=== PATIENT | male | born 1935 | race Two or more races ===

== ENCOUNTER 2017-11-12 04:51 | Emergency (ER) | payer MEDICARE ==
[~2017-11-12] VITALS: Ht 167.6 cm; Wt 84.4 kg
--- NOTE | 2017-11-12 04:58 | NUR ---
PT AMBULATORY TO ER BED 3. PT BIB SELF C/O "PALPITATIONS AND HIGH B/P" X 5 HOURS. VSS/RESP EVEN UNLABORED/NAD NOTED/AFEBRILE/DENIES N-V-D/SKIN WARM AND DRY/AOX4. PT DENIES CP/SOB. AWAITING MD CAMPOS.
--- NOTE | 2017-11-12 05:28 | NUR ---
EMT AT BEDSIDE FOR EKG.
--- NOTE | 2017-11-12 05:30 | NUR ---
18G IV TO R AC X 1 ATTEMPT USING ASEPTIC TECH, BLOOD HANDED OVER TO LAB AT THE BEDSIDE. IV FLUSHES EASILY WITH NS, NO S/S OF INFILTRATION.
[2017-11-12 05:47] LABS: BASOPHILS % (AUTO) 0.4 % (0.0-2.0); EOSINOPHILS # (AUTO) 0.2 /CMM (0.0-0.7); EOSINOPHILS % (AUTO) 2.4 % (0.0-6.0); HEMATOCRIT 40 % (39-51); HEMOGLOBIN 13.5 g/dL (13.5-17.5); LYMPHOCYTES # (AUTO) 1.9 /CMM (0.8-4.8); LYMPHOCYTES % (AUTO) 24.1 % (20.0-44.0); MEAN CORPUSCULAR HEMOGLOBIN 33 PG (26.0-33.0); MEAN CORPUSCULAR HGB CONC 34 g/dl (31.0-36.0); MEAN CORPUSCULAR VOLUME 97 fL (80-96); MONOCYTES # (AUTO) 0.9 /CMM (0.1-1.30); MONOCYTES % (AUTO) 10.9 % (2.0-12.0); NEUTROPHILS % (AUTO) 62.2 % (43.0-81.0); PLATELET COUNT (AUTO) 234 /CMM (150-450); RDW COEFFICIENT OF VARIATION 14.4 (11.5-15.0); RED BLOOD CELL COUNT(AUTO) 4.07 MIL/uL (4.5-6.0)
[2017-11-12 05:55] LABS: CALCIUM, SERUM 8.9 mg/dL (8.5-10.1); CARBON DIOXIDE 26 mmol/L (21-32); CHLORIDE 103 mmol/L (98-107); CREATININE 1.1 mg/dL (0.6-1.3); GLUCOSE 101 mg/dL (74-106); POTASSIUM 3.7 mmol/L (3.5-5.1); SODIUM SERUM 140 mmol/L (136-145); UREA NITROGEN, BLOOD 24 mg/dL (7-18)
--- NOTE | 2017-11-12 05:57 | NUR ---
XRAY AT BEDSIDE.
[2017-11-12 06:15] LABS: TROPONIN I < 0.017 ng/mL (0.00-0.056)
[2017-11-12 06:27] LABS: INR 1.02 (0.87-1.13)
[2017-11-12] MEDS ORDERED: IV NS 0.9% 500 ML IV ONE (06:30)
--- NOTE | 2017-11-12 07:19 | NUR ---
ENDORSED TO WILBERT KENDALL FOR DIONE.
--- NOTE | 2017-11-12 07:23 | NUR ---
IV removed. Catheter intact and site benign. Pressure and 4x4 applied to site. No bleeding noted. Patient discharged to home in stable condition. Written and verbal after care instructions given. Patient verbalizes understanding of instruction. Patient ambulatory with a steady gait.
[2017-11-12 07:24] VITALS: BP 162/91
== END 2017-11-12 07:25 | disposition home or self-care (01) ==
LOC: ER 05:10
DX: I48.91 Unspecified atrial fibrillation (principal); I10 Essential (primary) hypertension; J18.9 Pneumonia, unspecified organism; N40.0 Benign prostatic hyperplasia without lower urinary tract symptoms; Y95 Nosocomial condition; Z90.89 Acquired absence of other organs
CPT/HCPCS: 36415; 71045; 80048; 83735; 84484; 85025; 85730; 93005; 99285; A4606; J7030; J7040; Z7610

== ENCOUNTER 2017-11-16 08:34 | Inpatient (IN) | payer MEDICARE ==
[~2017-11-16] VITALS: Ht 167.6 cm; Wt 83.9 kg
--- NOTE | 2017-11-16 08:34 | NUR ---
C/O PALPITATION AND RAPID HR, DENIES CHEST PAIN. NAD NOTED. PT AAO X3. RR EVEN AND UNLABORED. PT PLACED IN GOWN AND MONITOR. DR JOHN AT BEDSIDE FOR EVAL.
[2017-11-16] MEDS ORDERED: METOPROLOL TARTRATE INJ 5 MG/5 ML AMPUL ONE (08:55)
[2017-11-16 09:00] LABS: BASOPHILS % (AUTO) 0.2 % (0.0-2.0); EOSINOPHILS # (AUTO) 0.1 /CMM (0.0-0.7); EOSINOPHILS % (AUTO) 1.9 % (0.0-6.0); HEMATOCRIT 39 % (39-51); HEMOGLOBIN 13.3 g/dL (13.5-17.5); LYMPHOCYTES # (AUTO) 1.4 /CMM (0.8-4.8); LYMPHOCYTES % (AUTO) 22.3 % (20.0-44.0); MEAN CORPUSCULAR HEMOGLOBIN 33 PG (26.0-33.0); MEAN CORPUSCULAR HGB CONC 34 g/dl (31.0-36.0); MEAN CORPUSCULAR VOLUME 97 fL (80-96); MONOCYTES # (AUTO) 0.7 /CMM (0.1-1.30); MONOCYTES % (AUTO) 12.1 % (2.0-12.0); NEUTROPHILS # (AUTO) 3.9 /CMM (1.8-8.9); NEUTROPHILS % (AUTO) 63.5 % (43.0-81.0); PLATELET COUNT (AUTO) 195 /CMM (150-450); RDW COEFFICIENT OF VARIATION 14.5 (11.5-15.0); RED BLOOD CELL COUNT(AUTO) 4.07 MIL/uL (4.5-6.0); WHITE BLOOD COUNT (AUTO) 6.1 K/uL (4.3-11.0)
[2017-11-16] MEDS ORDERED: METOPROLOL TARTRATE INJ 5 MG/5 ML AMPUL IV ONE (09:00)
[2017-11-16] MEDS ORDERED: MELA3TAB PO (09:14)
[2017-11-16] MEDS ORDERED: PRAV40TA3 PO (09:14)
[2017-11-16] MEDS ORDERED: PRAV20TA4 PO (09:14)
[2017-11-16] MEDS ORDERED: BRIM5DRO3 EACHEYE (09:14)
[2017-11-16] MEDS ORDERED: PROM6.25 PO (09:14)
[2017-11-16] MEDS ORDERED: RANI150T12 PO (09:14)
[2017-11-16] MEDS ORDERED: ALFU10TA PO (09:14)
[2017-11-16] MEDS ORDERED: CLON0.1T PO (09:14)
[2017-11-16] MEDS ORDERED: GINK120T4 PO (09:14)
[2017-11-16] MEDS ORDERED: AMIO200T2 PO (09:14)
[2017-11-16] MEDS ORDERED: IPRA12.9 IH (09:14)
[2017-11-16] MEDS ORDERED: CHOL100044 PO (09:14)
[2017-11-16] MEDS ORDERED: MAGN400T26 PO (09:14)
[2017-11-16] MEDS ORDERED: OMEG-167 PO (09:14)
[2017-11-16] MEDS ORDERED: MULT-447 PO (09:14)
[2017-11-16] MEDS ORDERED: DEXL60CA3 PO (09:14)
[2017-11-16] MEDS ORDERED: DIGO125T PO (09:14)
[2017-11-16] MEDS ORDERED: LEVO100T9 PO (09:14)
[2017-11-16] MEDS ORDERED: GLUC1TAB20 PO (09:14)
[2017-11-16 09:15] LABS: INR 1.15 (0.87-1.13)
[2017-11-16 09:17] LABS: ALANINE AMINOTRANSFERASE 39 U/L (12-78); ALBUMIN 3.4 g/dL (3.4-5.0); ALKALINE PHOSPHATASE 79 U/L (46-116); ASPARTATE AMINOTRANSFERASE 30 U/L (15-37); BILIRUBIN,DIRECT 0.1 mg/dL (0.0-0.2); BILIRUBIN,TOTAL 0.3 mg/dL (0.2-1.0); CALCIUM, SERUM 8.7 mg/dL (8.5-10.1); CARBON DIOXIDE 23 mmol/L (21-32); CHLORIDE 103 mmol/L (98-107); CREATININE 1.2 mg/dL (0.6-1.3); GLUCOSE 103 mg/dL (74-106); POTASSIUM 3.8 mmol/L (3.5-5.1); SODIUM SERUM 139 mmol/L (136-145); TOTAL PROTEIN, SERUM 7.7 g/dL (6.4-8.2); UREA NITROGEN, BLOOD 25 mg/dL (7-18)
[2017-11-16 09:19] LABS: TROPONIN I < 0.017 ng/mL (0.00-0.056)
[2017-11-16] MEDS ORDERED: IV NS 0.9% 1,000 ML IV PRN (10:21)
[2017-11-16] MEDS ORDERED: MAGNESIUM HYDROXIDE 30 ML UDC PO PRN (10:30)
[2017-11-16] MEDS ORDERED: CLONIDINE HCL 0.1 MG TABLET PO PRN (10:30)
[2017-11-16] MEDS ORDERED: HYDROCODONE/APAP 5/325MG 1 EACH TABLET PO PRN (10:30)
[2017-11-16] MEDS ORDERED: Z GUARD REMEDY 2 OZ OINT TP PRN (10:30)
[2017-11-16] MEDS ORDERED: ONDANSETRON HCL/PF 4 MG/2 ML VIAL IVP PRN (10:30)
[2017-11-16] MEDS ORDERED: MAG HYDROX/AL HYDROX/SIMETH 30 ML UDC PO PRN (10:30)
[2017-11-16] MEDS ORDERED: ACETAMINOPHEN 325 MG TABLET PO PRN (10:30)
[2017-11-16] MEDS ORDERED: HYDROMORPHONE INJ 0.5 MG/0.5 ML SYRINGE IV PRN (12:00)
[2017-11-16] MEDS ORDERED: IPRATROPIUM NEB FS 0.5 MG/2.5 ML AMPUL.NEB NEB PRN (12:00)
[2017-11-16] MEDS ORDERED: FAMOTIDINE 40 MG TABLET PO SCH (12:00)
[2017-11-16] MEDS: ATORVASTATIN 10 MG TABLET PO SCH (12:01)
[2017-11-16] MEDS: AMIODARONE HCL 200 MG TABLET PO SCH (12:01)
[2017-11-16] MEDS: ENOXAPARIN SODIUM 40 MG/0.4 ML DISP.SYRIN SQ SCH (12:05)
--- NOTE | 2017-11-16 12:14 | NUR ---
DYE TANK TENDER ADMITTING NOTES PATIENT ADMITTED TO UNIT AT 1135H VIA GURNEY ACCOMPANIED BY NURSE YESENIA. A/O X4, SAME VERBALLY RESPONSIVE WITH NO C/O PAIN OR DISCOMFORTS DURING ADMISSION. PT ORIENTED TO UNIT AND ROOM. PT WITH DIAGNOSIS OF A-FIB WITH RVR AND PLACED ON TELE-MONITORING WITH CURRENT READING OF SR AND HR OF 78, NO VERBALIZATION OF PALPITATION OR RAPID HR VOICED. V/S CHECKED AND RECORDED. BODY ASSESSMENT DONE WITH INTACT SKIN, NO RASHES OR BRUISES NOTED. PT HAS INTACT AND PATENT IV ACCESS ON LEFT AC g#20, IVF OF NS AT 75ML/HR STARTED, NO SIGNS OF INFILTRATION NOTED. SAFETY MEASURES INITIATED. BED PLACED ON LOW/LOCKED POSITION WITH SIDE-RAILS UP X 2. CALL LIGHT AND BEDSIDE TABLE PLACED WITHIN EASY REACH. WILL CONTINUE TO MONITOR PT ACCORDINGLY. ,
[2017-11-16] MEDS ORDERED: PROMETHAZINE HCL SYRUP 6.25 MG/5 ML UDC PO PRN (13:00)
[2017-11-16] MEDS: FAMOTIDINE (20 MG) 20 MG TABLET PO SCH (14:26)
[2017-11-16 16:00] VITALS: BP 123/72
[2017-11-16] MEDS ORDERED: Medication Not On Formulary EA (Omega-3 Fatty Acids/Fish Oil (Fish Oil 1,000 Mg Softgel) PO SCH (17:00)
--- NOTE | 2017-11-16 17:13 | NUR ---
RN NOTES PATIENT ON DAILY WARFARIN 4MG TAB, PER PT, HE USUALLY TAKE THE MEDICATION AT 1700H DAILY BUT TOOK THE 4MG DOSE ALREADY THIS MORNING BEFORE COMING TO HOSPITAL, SO NEXT DOSE WILL BE TOMORROW AFTERNOON. ALL HOME MEDS BROUGHT [place] PT SENT TO PHARMACY FOR SAFEKEEPING.
[2017-11-16] MEDS: MAGNESIUM OXIDE 400 MG TABLET PO SCH (17:19)
[2017-11-16] MEDS: BRIMONIDINE TARTRATE OPHT SOLN 5 ML BOTTLE EACHEYE SCH (17:19)
[2017-11-16] MEDS ORDERED: CHOLECALCIFEROL 1,000 UNIT TABLET (VIT D3) PO SCH (18:00)
[2017-11-16] MEDS ORDERED: [UNRECOGNIZED DRUG - OTHER] PO SCH (18:00)
[2017-11-16] MEDS ORDERED: GINKGO BILOBA 120 MG PO SCH (18:00)
[2017-11-16] MEDS ORDERED: Medication Not On Formulary EA (Melatonin 3 MG) PO SCH (18:00)
--- NOTE | 2017-11-16 18:59 | NUR ---
BATCH RECORDS CLERK CLOSING NOTES PT AWAKE AND RESTING IN BED. A/O X4, SAME ABLE TO MAKE NEEDS KNOWN. ALL NEEDS AND CARE ATTENDED WELL. ON ROOM AIR, BREATHING EVEN AND UNLABORED, NO ACUTE RESPIRATORY DISTRESS NOTED. ON TELE-MONITORING WITH CURRENT READINGS OF SR AND HR OF 75, NO C/O PALPITATION DURING SHIFT. IV ACCESS ON LEFT AC INTACT AND PATENT WITH IVF OF NS @ 75ML/HR INFUSING WELL, NO SIGNS OF INFILTRATION NOTED. HOB KEPT ELEVATED. BED IN LOW AND LOCKED POSITION. CALL LIGHT AND BEDSIDE TABLE WITHIN EASY REACH OF PT. WILL ENDORSED TO CHUCKING MACHINE SET UP OPERATOR NURSE FOR DIONE.
--- NOTE | 2017-11-16 19:30 | NUR ---
CONCERT OR LECTURE HALL MANAGER OPENING NOTES: PATIENT IN BED, AOX4, ON ROOM AIR, BREATHING EVEN AND UNLABORED. APPEARS CALM AND IN NO DISTRESS. DENIES PAIN AT THIS TIME. BREATH SOUNDS CLEAR TO AUSCULTATION. PIV OVER LAC G 20 INTACT AND PATENT TO FLUSH, RECONNECTED TO IV OF NS RUNNING AT 75 ML/HR. PROVIDED FOR COMFORT AND SAFETY. BED IN LOWEST AND LOCKED POSITION, SIDERAILS UP X 3, CALL LIGHT WITHIN REACH. WILL CONT TO MONITOR.
[2017-11-16 20:00] VITALS: BP 92/50
--- NOTE | 2017-11-16 20:29 | NUR ---
RN NOTES: REPORT GIVEN TO WILBERT DAUGHERTY FOR DIONE.
[2017-11-17] VITALS: BP 125/72
[2017-11-17 04:00] VITALS: BP 144/72
[2017-11-17 07:01] VITALS: BP 132/72
--- NOTE | 2017-11-17 07:10 | NUR ---
REPORT RECEIVED AT THE BEDSIDE. PATIENT IS RESTING COMFORTABLY IN BED. NO SOB OR DISTRESS NOTED AT THIS TIME. PATIENT DENIES PAIN. HEART RATE SR IN THE 80S. BED IN A LOW POSITION, CALL LIGHT WITHIN PATIENT REACH. WILL CONTINUE TO MONITOR.
--- NOTE | 2017-11-17 07:21 | NUR ---
ms/rn notes Patient alert et oriented, No significant changes the entire shift. Vital signs, afebrile, Denies pain at present. Admisnitered all meds as ordered. Sinus Rhthm on surveillance monitor, hr-70. No acute distress noted. All meeds attended. will endorse accordingly.
[2017-11-17] MEDS ORDERED: LEVOTHYROXINE SODIUM 100 MCG TABLET PO SCH (07:30)
[2017-11-17 07:51] LABS: BASOPHILS % (AUTO) 0.2 % (0.0-2.0); EOSINOPHILS % (AUTO) 0.6 % (0.0-6.0); HEMATOCRIT 35 % (39-51); LYMPHOCYTES # (AUTO) 1.2 /CMM (0.8-4.8); LYMPHOCYTES % (AUTO) 21.8 % (20.0-44.0); MEAN CORPUSCULAR HEMOGLOBIN 34 PG (26.0-33.0); MEAN CORPUSCULAR HGB CONC 34 g/dl (31.0-36.0); MEAN CORPUSCULAR VOLUME 98 fL (80-96); MONOCYTES # (AUTO) 0.6 /CMM (0.1-1.30); MONOCYTES % (AUTO) 10.9 % (2.0-12.0); NEUTROPHILS # (AUTO) 3.6 /CMM (1.8-8.9); NEUTROPHILS % (AUTO) 66.5 % (43.0-81.0); PLATELET COUNT (AUTO) 174 /CMM (150-450); RDW COEFFICIENT OF VARIATION 14.2 (11.5-15.0); RED BLOOD CELL COUNT(AUTO) 3.59 MIL/uL (4.5-6.0); WHITE BLOOD COUNT (AUTO) 5.5 K/uL (4.3-11.0)
[2017-11-17 08:00] VITALS: BP 132/72
[2017-11-17 08:00] LABS: CALCIUM, SERUM 8.1 mg/dL (8.5-10.1); CARBON DIOXIDE 24 mmol/L (21-32); CHLORIDE 105 mmol/L (98-107); CREATININE 1.3 mg/dL (0.6-1.3); GLUCOSE 90 mg/dL (74-106); MAGNESIUM 2.1 mg/dL (1.8-2.4); POTASSIUM 3.9 mmol/L (3.5-5.1); SODIUM SERUM 140 mmol/L (136-145); UREA NITROGEN, BLOOD 19 mg/dL (7-18)
[2017-11-17 08:06] LABS: CHOLESTEROL 165 mg/dL (<200); HDL CHOLESTEROL 50 mg/dL (40-60); LDL 101 mg/dL (0-99); TRIGLYCERIDES 93 mg/dL (30-150)
[2017-11-17] MEDS: MAGNESIUM OXIDE 400 MG TABLET PO SCH (08:20)
[2017-11-17] MEDS: BRIMONIDINE TARTRATE OPHT SOLN 5 ML BOTTLE EACHEYE SCH (08:20)
[2017-11-17] MEDS: FAMOTIDINE (20 MG) 20 MG TABLET PO SCH (08:21)
[2017-11-17] MEDS: ATORVASTATIN 10 MG TABLET PO SCH (08:21)
[2017-11-17 08:22] VITALS: BP 132/72
[2017-11-17] MEDS: AMIODARONE HCL 200 MG TABLET PO SCH (08:22)
[2017-11-17] MEDS: ENOXAPARIN SODIUM 40 MG/0.4 ML DISP.SYRIN SQ SCH (08:23)
[2017-11-17] MEDS ORDERED: AMIODARONE HCL 200 MG TABLET PO SCH ×2 (09:00)
[2017-11-17] MEDS ORDERED: WARF2TAB57 PO (11:17)
[2017-11-17] MEDS ORDERED: AMIO200T7 PO (11:17)
--- NOTE | 2017-11-17 12:05 | NUR ---
DISCHARGE INSTRUCTIONS GIVEN TO THE PATIENT AND ABLE TO UNDERSTAND. ALL PAPER WORK SIGNED AND BELONGINGS ACCOUNTED FOR. PATIENT STATES FULL UNDERSTANDING OF DISCHARGE AND FOLLOW UP INSTRUCTIONS. IV LINE REMOVED AND PRESSURE APPLIED, NO BLEEDING NOTED AT THE SITE. PICTURES OF SKIN NOT NEEDED PATIENT THEY WERE TAKEN LESS THAN 24 HOURS AGO AND THERE ARE NO NEW CHANGES. HEART MONITOR REMOVED AND RETURNED TO THE TELE DESK. FLU AND PNEUMONIA NOT GIVEN PATIENT RECEIVED THEM BOTH JUN 2017. PATIENT LEFT IN STABLE CONDITION, AMBULATORY, TO HOME. ESCORTED TO CAR AND PICKUP PERSON BY WILBERT EDOUARD. NO SOB OR DISTRESS NOTED.
[2017-11-17] MEDS ORDERED: DIGOXIN 0.125 MG TABLET PO PRN (12:06)
[2017-11-17] MEDS ORDERED: WARFARIN SODIUM 2 MG TABLET PO SCH (17:00)
[2017-11-17] MEDS ORDERED: MULTIVIT, IRON, MIN NO. 8, FA 1 TAB PO SCH (18:00)
[2017-11-18] MEDS ORDERED: PRAVASTATIN SODIUM 20 MG TABLET PO SCH (09:00)
== END 2017-11-17 12:12 | disposition home or self-care (01) | DRG 308 ==
LOC: ER 08:35 → TELE 10:45 → MED 11-17 08:44
PROVIDERS: ADMIT Nurse Practitioner Acute Care; ATTEND Nurse Practitioner Acute Care
DX: I48.91 Unspecified atrial fibrillation (principal); N17.0 Acute kidney failure with tubular necrosis; E03.9 Hypothyroidism, unspecified; E78.5 Hyperlipidemia, unspecified; N40.0 Benign prostatic hyperplasia without lower urinary tract symptoms; I10 Essential (primary) hypertension; D64.9 Anemia, unspecified; F10.10 Alcohol abuse, uncomplicated; Y90.9 Presence of alcohol in blood, level not specified; Z79.01 Long term (current) use of anticoagulants; Z79.899 Other long term (current) drug therapy
CPT/HCPCS: 36415; 71045-TC; 80048-TC; 80061-TC; 80076-TC; 82306; 82728-TC; 83540-TC; 83735-TC; 84100-TC; 84439-TC; 84443-TC; 84484-TC; 85025-TC; 85730-TC; 87081-TC; 93307-TC; A4606; J1650; J3490; J7030; Q0169; Z7610

== ENCOUNTER 2018-03-08 11:58 | Inpatient (IN) | payer MEDICARE ==
[~2018-03-08] VITALS: Ht 154.9 cm; Wt 84.4 kg
[~2018-03-08 11:58] MED LIST: ALFU10TA PO; AMIO200T7 PO; BRIM5DRO3 EACHEYE; CHOL100044 PO; CLON0.1T PO; DEXL60CA3 PO; DIGO125T PO; GINK120T4 PO; GLUC1TAB20 PO; IPRA12.9 IH; LEVO100T9 PO; MAGN400T26 PO; MELA3TAB PO; MULT-447 PO; OMEG-167 PO; PRAV20TA4 PO; PRAV40TA3 PO; PROM6.256 PO; RANI150T43 PO; WARF2TAB57 PO
--- NOTE | 2018-03-08 12:15 | NUR ---
A/O X 4. PT STABLE CONDITION. VSS. NEG ACUTE DISTRESS. NEG SOB. C/C PALPITATIONS SINCE MORNING. SAFETY MEASURES IN PLACE.
[2018-03-08] MEDS ORDERED: IV NS 0.9% 500 ML BAG IV ONE (12:30)
[2018-03-08 12:40] LABS: BASOPHILS # (AUTO) 0.1 /CMM (0.0-0.2); BASOPHILS % (AUTO) 1.1 % (0.0-2.0); EOSINOPHILS % (AUTO) 2.6 % (0.0-6.0); HEMATOCRIT 41 % (39-51); HEMOGLOBIN 13.9 g/dL (13.5-17.5); LYMPHOCYTES # (AUTO) 1.4 /CMM (0.8-4.8); LYMPHOCYTES % (AUTO) 23.6 % (20.0-44.0); MEAN CORPUSCULAR HGB CONC 34 g/dl (31.0-36.0); MEAN CORPUSCULAR VOLUME 96 fL (80-96); MONOCYTES # (AUTO) 0.5 /CMM (0.1-1.30); MONOCYTES % (AUTO) 7.9 % (2.0-12.0); NEUTROPHILS # (AUTO) 3.6 /CMM (1.8-8.9); NEUTROPHILS % (AUTO) 64.8 % (43.0-81.0); PLATELET COUNT (AUTO) 218 /CMM (150-450); RDW COEFFICIENT OF VARIATION 13.2 (11.5-15.0); RED BLOOD CELL COUNT(AUTO) 4.25 MIL/uL (4.5-6.0); WHITE BLOOD COUNT (AUTO) 5.8 K/uL (4.3-11.0)
--- NOTE | 2018-03-08 12:50 | NUR ---
XRAY AT BEDSIDE
[2018-03-08 12:52] LABS: CALCIUM, SERUM 9.3 mg/dL (8.5-10.1); CARBON DIOXIDE 24 mmol/L (21-32); CHLORIDE 104 mmol/L (98-107); CREATININE 1.4 mg/dL (0.6-1.3); GLUCOSE 123 mg/dL (74-106); POTASSIUM 3.7 mmol/L (3.5-5.1); SODIUM SERUM 138 mmol/L (136-145); UREA NITROGEN, BLOOD 21 mg/dL (7-18)
[2018-03-08 12:54] LABS: INR 2.23 (0.85-1.15)
[2018-03-08 12:57] LABS: ALANINE AMINOTRANSFERASE 36 U/L (12-78); ALBUMIN 3.5 g/dL (3.4-5.0); ALKALINE PHOSPHATASE 96 U/L (46-116); ASPARTATE AMINOTRANSFERASE 24 U/L (15-37); BILIRUBIN,DIRECT 0.1 mg/dL (0.0-0.2); BILIRUBIN,TOTAL 0.3 mg/dL (0.2-1.0); TOTAL PROTEIN, SERUM 7.6 g/dL (6.4-8.2)
[2018-03-08 13:00] LABS: TROPONIN I < 0.017 ng/mL (0.00-0.056)
--- NOTE | 2018-03-08 15:38 | NUR ---
PAGED DR. MCKINNEY FOR ADMISSION
--- NOTE | 2018-03-08 15:48 | NUR ---
REPAGED DR MCKINNEY.
[2018-03-08] MEDS ORDERED: DILTIAZEM HCL 25 MG IV ONE (15:58)
[2018-03-08] MEDS ORDERED: DILTIAZEM HCL 50 MG IV IV ONE (16:00)
[2018-03-08] MEDS ORDERED: WARF4TAB72 PO (16:02)
--- NOTE | 2018-03-08 16:20 | NUR ---
REPORT GIVEN TO BRYAN ATKINS FOR DIONE
[2018-03-08 16:35] VITALS: BP 112/76
--- NOTE | 2018-03-08 16:35 | NUR ---
RN NOTES RECEIVED PT FROM ER IN ROOM 105, TELE STATUS , PT IS A/OX4, ON RA , RESPIRATION EVEN AND UNLABORED, BEBA CHEST PAIN , ON TELE HR IN 80 , A.FIB, R FA IV SITE G 20 CDI, SR UP x2, CALL LIGHT WITHIN EASY REACH, BED LOCKED AND IN LOWEST POSITION , WILL CONTINUE TO MONITOR PT CLOSELY.
[2018-03-08 17:00] VITALS: BP 112/76
[2018-03-08] MEDS: MAGNESIUM OXIDE 400 MG TABLET PO SCH (17:00)
[2018-03-08] MEDS ORDERED: DIGOXIN 0.125 MG TABLET PO PRN (17:00)
[2018-03-08] MEDS ORDERED: CLONIDINE HCL 0.1 MG TABLET PO PRN (17:00)
[2018-03-08] MEDS ORDERED: Medication Not On Formulary EA (Omega-3 Fatty Acids/Fish Oil (Fish Oil 1,000 Mg Softgel) PO SCH (17:00)
[2018-03-08] MEDS ORDERED: PROMETHAZINE HCL SYRUP 6.25 MG/5 ML UDC PO PRN (17:00)
[2018-03-08] MEDS ORDERED: ACETAMINOPHEN 325 MG TABLET PO PRN (17:30)
[2018-03-08] MEDS ORDERED: ZOLPIDEM TARTRATE 5 MG TABLET PO PRN (17:30)
[2018-03-08] MEDS ORDERED: MAG HYDROX/AL HYDROX/SIMETH 30 ML UDC PO PRN (17:30)
[2018-03-08] MEDS ORDERED: Z GUARD REMEDY 2 OZ OINT TP PRN (17:30)
[2018-03-08] MEDS ORDERED: MAGNESIUM HYDROXIDE 30 ML UDC PO PRN (17:30)
[2018-03-08] MEDS ORDERED: ONDANSETRON HCL/PF 4 MG/2 ML VIAL IVP PRN (17:30)
[2018-03-08] MEDS ORDERED: HYDROCODONE/APAP 5/325MG 1 EACH TABLET PO PRN (17:30)
[2018-03-08] MEDS: CHOLECALCIFEROL 1,000 UNIT TABLET (VIT D3) PO SCH (17:33)
[2018-03-08] MEDS: MULTIVITAMINS,THERAGRAN 1 UDTAB TABLET PO SCH (17:33)
[2018-03-08] MEDS: WARFARIN SODIUM 2 MG TABLET PO SCH (17:52)
[2018-03-08] MEDS ORDERED: [UNRECOGNIZED DRUG - OTHER] PO SCH (18:00)
[2018-03-08] MEDS ORDERED: GINKGO BILOBA 120 MG PO SCH (18:00)
[2018-03-08] MEDS ORDERED: Medication Not On Formulary EA (Melatonin 3 MG) PO SCH (18:00)
--- NOTE | 2018-03-08 18:41 | NUR ---
RN NOTES VSS STABLE , PT BEBA ANY DISTRESS , WILL ENDOSE TO METALSMITH HELPER NURSE FOR DIONE.
--- NOTE | 2018-03-08 19:30 | NUR ---
RN/TELE NOTES: RECEIVED PT. IN BED W/ HOB ELEVATED. A/O X 4. ON TELE MONITOR W/ SR @ 78. DENIES ANY C/O CHEST PAIN OR SOB AT PRESENT. CONTINENT OF B/B. USES URINAL. BEDS LOCKED AND IN LOW POSITION. CALL LIGHT W/ REACH. WILL CONTINUE TO MONITOR.
[2018-03-08 20:00] VITALS: BP 98/60
[2018-03-08] MEDS: BRIMONIDINE TARTRATE OPHT SOLN 5 ML BOTTLE EACHEYE SCH (21:12)
[2018-03-09] VITALS: BP 155/65
[2018-03-09 04:00] VITALS: BP 138/89
[2018-03-09 06:09] LABS: BASOPHILS % (AUTO) 0.4 % (0.0-2.0); EOSINOPHILS % (AUTO) 3.5 % (0.0-6.0); HEMATOCRIT 43 % (39-51); HEMOGLOBIN 14.3 g/dL (13.5-17.5); LYMPHOCYTES % (AUTO) 27.1 % (20.0-44.0); MEAN CORPUSCULAR HGB CONC 34 g/dl (31.0-36.0); MEAN CORPUSCULAR VOLUME 100 fL (80-96); MONOCYTES # (AUTO) 0.7 /CMM (0.1-1.30); MONOCYTES % (AUTO) 9.7 % (2.0-12.0); NEUTROPHILS # (AUTO) 4.3 /CMM (1.8-8.9); NEUTROPHILS % (AUTO) 59.3 % (43.0-81.0); PLATELET COUNT (AUTO) 230 /CMM (150-450); RDW COEFFICIENT OF VARIATION 14.7 (11.5-15.0); RED BLOOD CELL COUNT(AUTO) 4.26 MIL/uL (4.5-6.0); WHITE BLOOD COUNT (AUTO) 7.3 K/uL (4.3-11.0)
[2018-03-09 06:15] LABS: CALCIUM, SERUM 9.1 mg/dL (8.5-10.1); CARBON DIOXIDE 29 mmol/L (21-32); CHLORIDE 109 mmol/L (98-107); CREATININE 1.5 mg/dL (0.6-1.3); GLUCOSE 99 mg/dL (74-106); MAGNESIUM 2.2 mg/dL (1.8-2.4); POTASSIUM 4.6 mmol/L (3.5-5.1); SODIUM SERUM 145 mmol/L (136-145); UREA NITROGEN, BLOOD 20 mg/dL (7-18)
[2018-03-09 06:20] LABS: CHOLESTEROL 210 mg/dL (<200); HDL CHOLESTEROL 62 mg/dL (40-60); LDL 127 mg/dL (0-99); TRIGLYCERIDES 99 mg/dL (30-150)
--- NOTE | 2018-03-09 07:20 | NUR ---
RN/TELE NOTES: NO ACUTE CHANGES NOTED DURING THIS SHIFT. REPORT GIVEN TO AM NURSE FOR DIONE.
--- NOTE | 2018-03-09 07:30 | NUR ---
SIDE STITCHING MACHINE OPERATOR INITIAL NOTES RECEIVED PATIENT AWAKE IN BED, AOX3, ROOM AIR, NO DISTRESS NOTED, NO CO OF CHEST PAIN/ PALPITATIONS, STATED HE FEELS BETTER TODAY, ON TELE MONITOR AFIB 78 ON MONITOR. AMBULATORY, IV R FA 20G, CLEAN AND PATENT, BED IN LOW AND LOCKED POSITION, CALL LIGHT WITHIN REACH, WILL CONTINUE TO MONITOR.
[2018-03-09 08:00] VITALS: BP 131/86
[2018-03-09] MEDS ORDERED: ALFUZOSIN PO SCH (09:00)
[2018-03-09] MEDS: LEVOTHYROXINE SODIUM 100 MCG TABLET PO SCH (09:07)
[2018-03-09] MEDS: BRIMONIDINE TARTRATE OPHT SOLN 5 ML BOTTLE EACHEYE SCH ×2 (09:07→16:01)
[2018-03-09] MEDS: AMIODARONE HCL 200 MG TABLET PO SCH ×2 (09:08→16:02)
[2018-03-09] MEDS: ATORVASTATIN 10 MG TABLET PO SCH (09:08)
[2018-03-09] MEDS: FAMOTIDINE (20 MG) 20 MG TABLET PO SCH (09:08)
[2018-03-09] MEDS: MAGNESIUM OXIDE 400 MG TABLET PO SCH ×2 (09:09→16:02)
[2018-03-09 12:00] VITALS: BP 131/73
[2018-03-09] MEDS ORDERED: IV NS 0.9% 1,000 ML BAG IV PRN (14:30)
[2018-03-09] MEDS: IV NS 0.9% 1,000 ML IV PRN (15:43)
[2018-03-09 16:00] VITALS: BP 138/82
[2018-03-09] MEDS: WARFARIN SODIUM 2 MG TABLET PO SCH (16:03)
--- NOTE | 2018-03-09 16:38 | NUR ---
VACCINE SPECIALIST NOTES PATEINT RESTING IN BED, NO DISTRESS NOTED, ENDORSED TO WILBERT JEFFERS FOR CONTINUITY OF CARE.
[2018-03-09] MEDS: CHOLECALCIFEROL 1,000 UNIT TABLET (VIT D3) PO SCH (17:30)
[2018-03-09] MEDS: MULTIVITAMINS,THERAGRAN 1 UDTAB TABLET PO SCH (17:30)
--- NOTE | 2018-03-09 19:30 | NUR ---
RN/TELE NOTES: RECEIVED PT. IN BED W/ HOB ELEVATED. A/O X 4. ON TELE MONITOR W/ AFIB @ 92. DENIES ANY C/O CHEST PAIN OR SOB AT PRESENT. CONTINENT OF B/B. USES URINAL. HAD VISITOR AT BEDSIDE. BEDS LOCKED AND IN LOW POSITION. W/ IVF GOING VIA RFA PATENT AND INTACT W/ NO S/S OF INFECTION/INFILTRATION NOTED. CALL LIGHT W/ REACH. WILL CONTINUE TO MONITOR.
[2018-03-09 20:00] VITALS: BP 132/84
[2018-03-10] VITALS: BP 146/88
[2018-03-10 04:00] VITALS: BP 134/74
[2018-03-10] MEDS: IV NS 0.9% 1,000 ML IV PRN (06:10)
--- NOTE | 2018-03-10 06:54 | NUR ---
RN/TELE NOTES: NO ACUTE CHANGES NOTED DURING THIS SHIFT. REPORT GIVEN TO AM NURSE FOR DIONE.
--- NOTE | 2018-03-10 07:05 | NUR ---
RN NOTES: RECEIVED PT. ON BED, A/Ox4, ON RA , RESPIRATION EVEN AND UNLABORED, NO SOB NOTED, ON TELE A.FIB, HR IN 70'S , NO DISTRESS NOTED, NS AT 75CC/HR RUNNING VIA R HAND IV SITE G 22, BEDS LOCKED AND IN LOW POSITION. CALL LIGHT WITHIN EASY REACH. SR UPx2, WILL CONTINUE TO MONITOR.
[2018-03-10 07:34] LABS: BASOPHILS % (AUTO) 0.6 % (0.0-2.0); EOSINOPHILS % (AUTO) 3.3 % (0.0-6.0); HEMATOCRIT 45 % (39-51); HEMOGLOBIN 14.7 g/dL (13.5-17.5); LYMPHOCYTES # (AUTO) 2.3 /CMM (0.8-4.8); LYMPHOCYTES % (AUTO) 28.5 % (20.0-44.0); MEAN CORPUSCULAR HGB CONC 33 g/dl (31.0-36.0); MEAN CORPUSCULAR VOLUME 100 fL (80-96); MONOCYTES # (AUTO) 0.6 /CMM (0.1-1.30); MONOCYTES % (AUTO) 7.8 % (2.0-12.0); NEUTROPHILS # (AUTO) 4.8 /CMM (1.8-8.9); NEUTROPHILS % (AUTO) 59.8 % (43.0-81.0); PLATELET COUNT (AUTO) 209 /CMM (150-450); RDW COEFFICIENT OF VARIATION 14.7 (11.5-15.0); RED BLOOD CELL COUNT(AUTO) 4.46 MIL/uL (4.5-6.0); WHITE BLOOD COUNT (AUTO) 8.1 K/uL (4.3-11.0)
[2018-03-10 07:42] LABS: CALCIUM, SERUM 8.5 mg/dL (8.5-10.1); CARBON DIOXIDE 26 mmol/L (21-32); CHLORIDE 107 mmol/L (98-107); CREATININE 1.3 mg/dL (0.6-1.3); GLUCOSE 100 mg/dL (74-106); POTASSIUM 3.9 mmol/L (3.5-5.1); SODIUM SERUM 140 mmol/L (136-145); UREA NITROGEN, BLOOD 21 mg/dL (7-18)
[2018-03-10 08:00] VITALS: BP 166/97
[2018-03-10 08:11] VITALS: BP 166/97
[2018-03-10] MEDS: MAGNESIUM OXIDE 400 MG TABLET PO SCH (08:11)
[2018-03-10] MEDS: LEVOTHYROXINE SODIUM 100 MCG TABLET PO SCH (08:11)
[2018-03-10] MEDS: FAMOTIDINE (20 MG) 20 MG TABLET PO SCH (08:11)
[2018-03-10] MEDS: AMIODARONE HCL 200 MG TABLET PO SCH (08:11)
[2018-03-10] MEDS: BRIMONIDINE TARTRATE OPHT SOLN 5 ML BOTTLE EACHEYE SCH (08:14)
[2018-03-10] MEDS: ATORVASTATIN 10 MG TABLET PO SCH (08:14)
[2018-03-10] MEDS ORDERED: AMIO200T7 PO (11:11)
--- NOTE | 2018-03-10 11:59 | NUR ---
RN NOTES DISCHARGE INSTRUCTION GIVEN TO PT , VERBALIZES UNDERSTANDING . AWAITING FOR HIS FAMILY TO ARRIVE AND TAKE HIM HOME .
--- NOTE | 2018-03-10 12:20 | NUR ---
RN NOTES R HAND IV SITE D/LIZBET , PT LEFT THE FLOOR TO MAIN ENTRANCE VIA W/C ACCOMPANIED BY STAFF MEMBER IN STABLE CONDITION .
== END 2018-03-10 12:20 | disposition home or self-care (01) | DRG 308 ==
LOC: ER 12:02 → EDBD 12:02 → ER 14:12 → TELE1 16:26
PROVIDERS: ADMIT Family Medicine; ATTEND Family Medicine
DX: I48.91 Unspecified atrial fibrillation (principal); N17.0 Acute kidney failure with tubular necrosis; E78.5 Hyperlipidemia, unspecified; E03.9 Hypothyroidism, unspecified; Z87.891 Personal history of nicotine dependence; R73.9 Hyperglycemia, unspecified; N40.0 Benign prostatic hyperplasia without lower urinary tract symptoms; N18.9 Chronic kidney disease, unspecified; I12.9 Hypertensive chronic kidney disease with stage 1 through stage 4 chronic kidney disease, or unspecified chronic kidney disease; E66.9 Obesity, unspecified; Z68.35 Body mass index [BMI] 35.0-35.9, adult; Z79.01 Long term (current) use of anticoagulants
CPT/HCPCS: 36415; 71045-TC; 80048-TC; 80061-TC; 80076-TC; 83735-TC; 84100-TC; 84484-TC; 85025-TC; 85730-TC; 87081-TC; A4606; J3490; J7030; J7040; Q0169; Z7610

== ENCOUNTER 2019-05-24 21:18 | Emergency (ER) | payer MEDICARE ==
[~2019-05-24] VITALS: Ht 157.5 cm; Wt 72.6 kg
[~2019-05-24 21:18] MED LIST changes: -DEXL60CA3 PO; -IPRA12.9 IH; -PRAV20TA4 PO; +RANI-655 PO; -RANI150T43 PO; -WARF2TAB57 PO; +WARF4TAB72 PO
--- NOTE | 2019-05-24 22:10 | NUR ---
C/C FLUCTUATING BP X1 DAY, SLURRED SPEECH, FATIGUE, -N/V. PATIENT ASSESSED FOR STROKE, NO S/SX OF STROKE NOTED AT THIS TIME. PATIENT WITH FACIAL SYMMETRY, NO WEAKNESS ON EITHER UPPER AND LOWER EXTREMITIES. MADE AWARE. CHANGED INTO GOWN, ATTACHED TO THE MONITOR.
[2019-05-24] MEDS ORDERED: IV NS 0.9% 1,000 ML BAG IV ONE (22:30)
[2019-05-24 22:36] LABS: BASOPHILS % (AUTO) 0.5 % (0.0-2.0); HEMATOCRIT 37 % (39-51); HEMOGLOBIN 12.5 g/dL (13.5-17.5); LYMPHOCYTES # (AUTO) 1.5 /CMM (0.8-4.8); LYMPHOCYTES % (AUTO) 15.3 % (20.0-44.0); MEAN CORPUSCULAR HGB CONC 34 g/dl (31.0-36.0); MEAN CORPUSCULAR VOLUME 96 fL (80-96); MONOCYTES # (AUTO) 0.7 /CMM (0.1-1.30); MONOCYTES % (AUTO) 7.3 % (2.0-12.0); NEUTROPHILS # (AUTO) 7.3 /CMM (1.8-8.9); NEUTROPHILS % (AUTO) 75.9 % (43.0-81.0); PLATELET COUNT (AUTO) 271 /CMM (150-450); RED BLOOD CELL COUNT(AUTO) 3.85 MIL/uL (4.5-6.0); WHITE BLOOD COUNT (AUTO) 9.7 K/uL (4.3-11.0)
[2019-05-24 22:38] LABS: APPEARANCE,URINE Clear (CLEAR); BILIRUBIN,URINE Negative (NEGATIVE); BLOOD, URINE Negative Ery/uL (NEGATIVE); COLOR,URINE Yellow (YELLOW); KETONES,URINE Negative (NEGATIVE); LEUKOCYTE ESTERASE ,URINE Negative (NEGATIVE); NITRITE, URINE Negative (NEGATIVE); PH,URINE 5.5 (5.0-8.0); PROTEIN,URINE Negative (NEGATIVE); UGLUCOSE Negative (NEGATIVE); UROBILINOGEN,URINE 0.2 EU/dL (0.2)
--- NOTE | 2019-05-24 22:42 | NUR ---
PATIENT TAKEN TO CT.
[2019-05-24 22:47] LABS: CALCIUM, SERUM 9.1 mg/dL (8.5-10.1); CARBON DIOXIDE 26 mmol/L (21-32); CHLORIDE 99 mmol/L (98-107); CREATININE 1.1 mg/dL (0.6-1.3); GLUCOSE 100 mg/dL (74-106); POTASSIUM 4.1 mmol/L (3.5-5.1); SODIUM SERUM 135 mmol/L (136-145); UREA NITROGEN, BLOOD 16 mg/dL (7-18)
[2019-05-24 22:53] LABS: ALANINE AMINOTRANSFERASE 18 U/L (12-78); ALBUMIN 3.3 g/dL (3.4-5.0); ALKALINE PHOSPHATASE 106 U/L (46-116); ASPARTATE AMINOTRANSFERASE 17 U/L (15-37); BILIRUBIN,DIRECT 0.1 mg/dL (0.0-0.2); BILIRUBIN,TOTAL 0.4 mg/dL (0.2-1.0); TOTAL PROTEIN, SERUM 7.3 g/dL (6.4-8.2)
[2019-05-25] VITALS: BP 146/71
== END 2019-05-25 01:57 | disposition home or self-care (01) ==
LOC: ER 21:28
DX: R42 Dizziness and giddiness (principal); I10 Essential (primary) hypertension; I48.91 Unspecified atrial fibrillation; N40.0 Benign prostatic hyperplasia without lower urinary tract symptoms; Z90.89 Acquired absence of other organs; Z79.01 Long term (current) use of anticoagulants; Z79.899 Other long term (current) drug therapy
CPT/HCPCS: 36415; 70450; 71045; 80048; 80076; 81001; 82962; 84484; 85025; 85730; 93005; 96360; 99284; J7030; 81000-TC

== ENCOUNTER 2020-02-09 15:39 | Emergency (ER) | payer MEDICARE ==
[~2020-02-09] VITALS: Ht 165.1 cm; Wt 72.6 kg
[~2020-02-09 15:39] MED LIST changes: -MELA3TAB PO; +MELA3TAB41 PO
[2020-02-09 15:41] VITALS: BP 136/77
== END 2020-02-09 16:13 | disposition home or self-care (01) ==
LOC: ER 15:42
DX: I10 Essential (primary) hypertension (principal); Z76.0 Encounter for issue of repeat prescription; I48.91 Unspecified atrial fibrillation; N40.0 Benign prostatic hyperplasia without lower urinary tract symptoms; Z90.89 Acquired absence of other organs; Z79.899 Other long term (current) drug therapy; Z79.01 Long term (current) use of anticoagulants